=== PATIENT | female | born 1995 | race Caucasian/White ===

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

== ENCOUNTER 2018-12-25 23:28 | Emergency (ER) | payer MEDICAID ==
[~2018-12-25] VITALS: Ht 162.6 cm; Wt 86.2 kg
[2018-12-26 00:10] VITALS: BP_SYST 125
[2018-12-26] MEDS ORDERED: SERT-131 PO (00:21)
== END 2018-12-26 01:34 | disposition left against medical advice (07) ==
LOC: SED 23:28
DX: R10.9 Unspecified abdominal pain (principal); R11.10 Vomiting, unspecified; Z53.21 Procedure and treatment not carried out due to patient leaving prior to being seen by health care provider

== ENCOUNTER 2022-04-24 12:28 | Emergency (ER) | payer MEDICAID ==
[~2022-04-24] VITALS: Ht 162.6 cm; Wt 93.0 kg
[~2022-04-24 12:28] MED LIST changes: -MULTIVIT; +SERT-131 PO
[2022-04-24 12:44] VITALS: BP_SYST 127
[2022-04-24] MEDS ORDERED: LIDOCAINE 1%, 20 ML MDV 20 ML ONE (13:10)
[2022-04-24] MEDS ORDERED: DIPHTH,PERTUSS(ACELL),TET VAC 0.5 ML VIAL (Tdap) I.M. ONE (13:15)
[2022-04-24] MEDS ORDERED: LIDOCAINE 1% 10 MG/ML, 20 ML MDV INJ ONE (13:15)
[2022-04-24] MEDS ORDERED: BACITRACIN 1 GM OINT TP ONE (13:15)
[2022-04-24 14:42] VITALS: BP_SYST 127
== END 2022-04-24 14:42 | disposition home or self-care (01) ==
LOC: SED 12:28
DX: S61.305A Unspecified open wound of left ring finger with damage to nail, initial encounter (principal); Z79.899 Other long term (current) drug therapy; X58.XXXA Exposure to other specified factors, initial encounter; Y93.89 Activity, other specified; Y92.89 Other specified places as the place of occurrence of the external cause; Y99.8 Other external cause status
CPT/HCPCS: 99284; 90715; 90471; 11730; J2001

== ENCOUNTER 2023-08-24 23:01 | Emergency (ER) | payer MEDICAID ==
[~2023-08-24] VITALS: Ht 162.6 cm; Wt 93.9 kg
[2023-08-24 23:20] VITALS: BP_SYST 118; PULSE 82; RESP 16; TEMP 98.1; O2SAT 97
[2023-08-25] MEDS: ONDANSETRON HCL 4 MG/2 ML VIAL IVP ONE (01:54)
[2023-08-25] MEDS: KETOROLAC TROMETHAMINE 30 MG VIAL IVP ONE (01:55)
[2023-08-25] MEDS ORDERED: NAPR-1172 PO (02:45)
[2023-08-25 03:01] VITALS: BP_SYST 118; PULSE 82; RESP 16; TEMP 98.1; O2SAT 97
== END 2023-08-25 03:01 | disposition home or self-care (01) ==
LOC: SED 23:01
DX: S09.90XA Unspecified injury of head, initial encounter (principal); Y04.8XXA Assault by other bodily force, initial encounter; Y93.89 Activity, other specified; Y92.89 Other specified places as the place of occurrence of the external cause; Y99.8 Other external cause status
CPT/HCPCS: 70450-TC; 96374; 96375; 99285; J1885; J2405